=== PATIENT | male | born 1945 | race Caucasian/White ===

== ENCOUNTER 2022-12-04 09:09 | Outpatient (CLI) | payer MEDICARE, SELFPAY ==
--- NOTE | 2022-12-04 09:19 | ECG_ITS ---
Measurements Intervals [place] Rate: 59 P: 80 OR: 115 QRS: 46 QRSD: 98 T: 58 QT: 388 QTc: 387 Interpretive Statements SINUS BRADYCARDIA WITH SHORT OR INTERVAL NONSPECIFIC ST ELEVATION IN ANTERIOR LEADS BASELINE ARTIFACT- I, II, III, AVR, AVL, AVF, V4 BORDERLINE ECG NO PREVIOUS ECG AVAILABLE FOR COMPARISON Electronically Signed On 12-04-2022 9:52:49 [employer] by Michael Hager D.O.
[2022-12-04 10:09] LABS: Hemoglobin A1C 5.6 % (<5.7)
== END 2022-12-04 09:10 | disposition home or self-care (01) ==
PROVIDERS: PCP Family Medicine; Visit Provider Urology
DX: N39.3 Stress incontinence (female) (male) (principal); I10 Essential (primary) hypertension; Z01.818 Encounter for other preprocedural examination
CPT/HCPCS: 36415; 83036; 93005

== ENCOUNTER 2022-12-11 01:22 | Day surgery (SDC) | payer MEDICARE, SELFPAY ==
[2022-11-29 14:32] VITALS: BMI 26.5
--- NOTE | 2022-11-29 14:57 | PC.NURSE ---
Report to the Outpatient Waiting Room, entrance under the green pavilion located off [facility], at time __10:00AM on date __12/11/22 . Planned Procedure Time: _12:00PM . Time changes happen often and if your time is changed the preop area will call you the afternoon before. - You and your visitor will be asked to self-screen and do not enter if you have any COVID symptoms. - Only one visitor is requested with a max of two and NO children visitors are allowed at this time. - The patient visitor may be requested to leave or wait in car when not with patient due to distancing restrictions. - A mask is optional within the hospital. Patients may have clear liquids (water, carbonated beverages, clear teas, apple juice) until 3 hours prior to surgery with a maximum of 20 ounces. - No food from midnight until time of surgery Take the following medications with a SIP of water the morning of surgery: ____NONE Medications to discontinue per physician NONE Date to take last dose Please no make-up, nail uzbek, hairspray, perfume, deodorant, or body powder the day of surgery. No jewelry (including any body piercings) or valuables the day of surgery, leave them at home. Please take a shower or bath the night before, or the morning of, surgery with an antibacterial soap. Wear comfortable, loose fitting clothing. Children are encouraged to wear pajamas. - Jewelry must be removed prior to entering the operating room. Rings and piercings that are not removed may be cut off. - The hospital will not accept responsibility for valuables. - Please leave all valuables, including medications, at home the day of surgery. If you are going home after surgery, a licensed equipment driver must drive you home. - NO public transportation without another adult if you receive anesthesia. - We recommend that an adult stay with you for 24 hours following discharge. - We also recommend that you do not drive, make important decision, drink alcoholic beverages, or take any drugs that were not prescribed by your health care provider for at least 24 hours after your discharge time. Follow any additional instructions given to you from your surgeon. If you or anyone in your household have experienced Covid symptoms in the past week, please notify your surgeon or the nurse liaison at the phone number below for possible testing. Telephone instructions given to ___PATIENT and asked if any additional questions and then verbalized understanding. Patient advised to call surgeon office or pre surgery nurse liaison [phone] if any additional questions.
[2022-12-11] VITALS (12 sets, daily range): BP systolic 94–154; BP diastolic 48–92; PULSE 66–98; RESP 12–20; TEMP 36.1–36.8; O2SAT 97–100
--- NOTE | 2022-12-11 10:19 | WPDHPUPDATE1 ---
History and Physical Update Update Date/Time: 12/11/22 10:19 History and Physical has been reviewed, including an updated exam of the patient. There are NO changes in the patient's condition. Risks, benefits, and alternatives have been discussed and questions answered. Patient agrees to proceed with procedure.
[2022-12-11] MEDS: LACTATED RINGERS 1,000 ML 30 ML IV CONT ×2 (10:50→14:52)
[2022-12-11] MEDS: GENTAMICIN SULFATE INJ 420 MG in DEXTROSE 5% 100 ML 100 MG IVPB (10:50)
--- NOTE | 2022-12-11 11:51 | WPDANESEPPF ---
Anes - Initial Pre Proc Eval Procedure: Operation Date: 12/11/22 12:00 Proposed Procedures p Advance Male Sling - Andres Sheikh MD Date/Time: 12/11/22 11:51 Surgeon: Andres Sheikh MD Pre Op Diagnosis: urinary stress incontience Patient Data Age: 76 Gender: M Height: 1.78 m Weight: 80.9 kg Last Vital Signs Temp 36.8 C 12/11/22 09:56 Pulse 98 12/11/22 09:56 Resp 18 12/11/22 09:56 BP 154/80 H 12/11/22 09:56 Pulse Ox 100 12/11/22 09:56 O2 Del Method Room Air 12/11/22 09:56 Allergies Allergy/AdvReac Type Severity Reaction Status Date / Time penicillin G AdvReac Nausea Verified 12/11/22 10:06 Home Medications Medication Instructions Recorded Confirmed Type lisinopril 40 mg tablet 40 mg PO QAM 11/29/22 12/11/22 History mirabegron 50 mg tablet,extended 50 mg PO DAILY 11/29/22 12/11/22 History release 24 hr (Myrbetriq) pantoprazole 40 mg tablet,delayed 40 mg PO QAM 11/29/22 12/11/22 History release rosuvastatin 40 mg tablet 40 mg PO DAILY 11/29/22 12/11/22 History Patient hx anesthesia problems: none Family hx anesthesia problems: none Results Review: All pre-operative results and documents have been reviewed as part of the pre-operative evaluation. [facility] Social History Social History Smoking status: Never smoker Alcohol intake: current Drinks per week: 2 Substance use: never Living arrangements: with family Additional living arrangements comments: Spiritual care concerns: No Anes - Eval Final PreProcedure Day of Procedure 12/11/22 11:51 Patient weight: normal Heart: regular rate and rhythm Lungs: clear to auscultation Airway: Mallampati scale class II Neurological: alert and oriented Last oral intake: >/= 8 hours ASA classification: III Emergent: no Anesthetic plan: proceed Anesthesia type and monitoring: general LMA and standard monitoring Results Review: All pre-operative results and documents have been reviewed as part of the pre-operative evaluation. Informed Consent: The patient's anesthetic plan and its attendant risks and benefits were discussed with the patient/family/POA. Questions were solicited and answers provided to the satisfaction of the patient/family/POA.
[2022-12-11] MEDS: MIDAZOLAM HCL (*CRX) 2 MG/2 ML VIAL 1 MG IV PUSH (12:24)
--- NOTE | 2022-12-11 12:27 | SUR.PREOP ---
patient updated on time delay
[2022-12-11] MEDS: GENTAMICIN SULFATE 0.1% CR 15 GM TUBE 1 APPLIC TOPICAL (13:42)
--- NOTE | 2022-12-11 14:56 | W.PM.PROC2 ---
Procedure Note - Detailed Date of Procedure 12/11/22 Pre-op Diagnosis urinary stress incontience Post-op Diagnosis Same Procedure Performed 1. Placement of AMS Advance male sling. 2. Cystoscopy. Surgeon Andres Sheikh MD Anesthesia General Description of Procedure Description of Operation: Informed consent was obtained. The patient was taken to the operating room and given preoperative IV antibiotics with vancomycin and gentamicin, the patient has received oral Levaquin for the past 48 hours at home, and has done a 3-day Hibiclens wash. The patient was induced with general anesthesia. We then shaved, and the patient received a Betadine scrub followed by ChloraPrep. The patient was in the dorsal lithotomy position. Drapes were placed and then again prepped with Chloraprep. A 16-[place] Ca catheter was inserted. We made a 3 cm incision in the perineum. We then dissected down and identified the bulbar spongiosis muscle. The muscle layer was opened. We identified the urethra and it was mobilized laterally as well as proximally. We did take down the central tendon for approximately 3 cm. This allowed mobilization of the urethra. We then irrigated copiously. Cystoscopy was performed and revealed no injury to the urethra and appropriate dissection. We secured the mesh to the spongiosum with 3-0 Vicryl suture with the proximal end at point of dissection of central tendon.We used the Advance trocar passers to place the sling through the obturator foramen. There was good positioning noted.The catheter was removed. We then performed flexible cystoscopy. We inspected the urethra in the bladder. There was no injury from sling placement. We then tightened the sling. We did note that the sling did compress nicely. A 12-F Ca catheter was inserted.We then irrigated copiously. We then closed bulbar spongiosis with a 2-0 Vicryl suture. We then tunneled the arms of the sling into the perineal incision. We performed multiple layers of closure with 3-0 Vicryl suture and the skin was closed with a 3-0 Vicryl horizontal mattress. We reapproximated the skin at the stab incisions for placement of the trocars with 4-0 Monocryl. Surgical glue was applied to all incisions.We placed a scrotal supporter. The catheter was left to gravity. The patient was then awakened and taken to the recovery room in stable condition. Estimated Blood Loss 25 Complications No immediate complications Condition Stable Disposition PACU
[2022-12-11] MEDS: fentaNYL CITRATE INJ (*CRX) 100 MCG/2 ML VIAL 25 MCG IV PUSH ×4 (15:10→15:28)
--- NOTE | 2022-12-11 15:47 | ADMGEN ---
This patient, Onur Johnson, was admitted to -. Patient/family oriented to hospital policies and general routines including ID bracelet, bed and alarms, visiting hours, pain management, procedures, bathroom and other care routines, personal items, smoking policy, room service/diet, and visiting hours. Information on how to activate the Rapid Response Team has been discussed. Patient/Family are encouraged to report perceived risks to care and to ask questions if they do not understand what they are told or what they should do.
[2022-12-11] MEDS: DEXTROSE 5%/0.45% SOD CHL 1,000 ML 125 ML IV CONT (16:14)
--- NOTE | 2022-12-11 16:14 | ADMGEN ---
This patient, Onur Johnson, was admitted to [facility] Surgery-3. Patient/family oriented to hospital policies and general routines including ID bracelet, bed and alarms, visiting hours, pain management, procedures, bathroom and other care routines, personal items, smoking policy, room service/diet, and visiting hours. Information on how to activate the Rapid Response Team has been discussed. Patient/Family are encouraged to report perceived risks to care and to ask questions if they do not understand what they are told or what they should do.
[2022-12-11] MEDS: HYDROcodone/acetaminophen (*CRX) 5-325 MG TABLET 1 TAB PO ×2 (16:39→20:59)
[2022-12-11] MEDS: DOCUSATE SODIUM 100 MG CAPSULE PO (16:40)
[2022-12-11 20:28] LABS: Estimated CRCL calculation 59 ml/min; Estimated Glomerular Filt Rate > 60
[2022-12-12] MEDS: HYDROcodone/acetaminophen (*CRX) 5-325 MG TABLET 1 TAB PO ×2 (00:39→05:51)
[2022-12-12 05:50] VITALS: BP 103/50; PULSE 64; RESP 20; TEMP 36.8; O2SAT 99
--- NOTE | 2022-12-12 08:02 | WPDANESPN ---
Anes - Prog Note Post-Op Date/Time: 12/12/22 08:02 Vital Signs: Last Vital Signs Temp 36.8 C 12/12/22 05:50 Pulse 64 12/12/22 05:50 Resp 20 12/12/22 05:50 BP 103/50 L 12/12/22 05:50 Pulse Ox 99 12/12/22 05:50 O2 Del Method Room Air 12/11/22 15:50 O2 Flow Rate 8 12/11/22 15:05 Pain Score (VAS): 0 I/O: Intake & Output 12/11/22 12/12/22 12/12/22 23:59 07:59 15:59 Intake Total 1200 1300 Output Total 150 400 Balance 1050 900 Laboratory Tests 12/11/22 19:58 12/11/22 19:58 Creatinine 1.00 Estim Creat Clear Calc 59 Estimated GFR > 60 Patient Feedback: Patient satisfied with anesthetic care.
[2022-12-12] MEDS: lisinopriL 20 MG TABLET 40 MG PO (08:17)
[2022-12-12] MEDS: levoFLOXacin 500 MG TABLET PO (08:17)
[2022-12-12] MEDS: PANTOPRAZOLE 40 MG TABLET PO (08:17)
[2022-12-12] MEDS: ROSUVASTATIN 10 MG TABLET 40 MG PO (08:17)
[2022-12-12] MEDS: DOCUSATE SODIUM 100 MG CAPSULE PO (08:17)
[2022-12-12] MEDS: ENOXAPARIN 30 MG/0.3 ML SYRINGE SUB-Q (08:17)
[2022-12-12] MEDS: MIRABEGRON 50 MG ER TABLET PO (08:17)
[2022-12-12] MEDS: CALCIUM CARBONATE (TUMS) 500 MG (200 MG ELEMENTAL) PO (12:04)
[2022-12-12] MEDS: GENTAMICIN 80MG/SOD CHL 50 ML 80 MG/50 ML BAG 100 MG IVPB (12:46)
--- NOTE | 2022-12-12 16:00 | WPDUROPN2 ---
Progress Note: A&P Assessment and Plan (1) Stress incontinence: Code(s): N39.3 - Stress incontinence (female) (male) Status: Acute Assessment and Plan: Plan to f/u on 12/25/[address] Sheikh. Ok to discharge home. Subjective Subjective Date/Time Seen: 12/12/22 16:00 Placement of AMS Advance male sling. Cystoscopy. Patient doing very well, catheter removed this morning. Urinating independently, PVR is low via bladder scan. Post Op day: 1 Review of Systems Cardiovascular: Cardiovascular: Denies chest pain Respiratory: Respiratory: Reports no additional respiratory complaints Genitourinary: Genitourinary: Denies hematuria, Denies genital pain, Denies dysuria, Denies flank pain, Denies urinary frequency and Denies urinary hesitancy Exam Const: General: cooperative Resp: Effort & Inspection: normal respiratory effort Cardio: Rate: regular rate GI: GI Palp: Yes Soft to palpation and No Tenderness to palpation present (GI) : General: Yes no CVA tenderness Extrem: Right lower extremity: no edema Left lower extremity: no edema Objective Data Vital Signs Vital Signs: Vital Signs - 24 hr 12/11/22 16:05 12/11/22 16:35 12/11/22 17:35 Temperature 97.0 F L 97.0 F L 97.5 F L Pulse Rate 72 73 87 Respiratory Rate 18 18 18 Blood Pressure 114/71 115/58 L 106/48 L Pulse Oximetry 98 100 99 Oxygen Delivery 12/11/22 19:42 12/11/22 22:00 12/12/22 05:50 Temperature 97.8 F 98.3 F Pulse Rate 70 66 64 Respiratory Rate 20 18 20 Blood Pressure 105/52 L 103/50 L Pulse Oximetry 100 98 99 Oxygen Delivery 12/12/22 08:00 Temperature Pulse Rate Respiratory Rate Blood Pressure Pulse Oximetry Oxygen Delivery Room Air Intake/Output Intake/Output: Intake & Output 12/09/22 12/10/22 12/11/22 12/12/22 23:59 23:59 23:59 23:59 Intake Total 1660.5 1450 Output Total 500 1000 Balance 1160.5 450 Labs Labs: Laboratory Results - last 24 hr 12/11/22 19:58 Creatinine 1.00 Estim Creat Clear Calc 59 Estimated GFR > 60
== END 2022-12-12 13:30 | disposition home or self-care (01) ==
LOC: ANHSURGERY 09:52 → ANHSUROVER 18:39
PROVIDERS: PCP Family Medicine; Visit Provider Urology
PROC: (CPT 53440; principal; 2022-12-11 12:00)
DX: N39.3 Stress incontinence (female) (male) (principal); N52.31 Erectile dysfunction following radical prostatectomy; R35.0 Frequency of micturition; E78.00 Pure hypercholesterolemia, unspecified; Z85.46 Personal history of malignant neoplasm of prostate
CPT/HCPCS: 53440; 36415; 82565; 83036; 93005; A9270; C1771; J1100; J1170; J1580; J1650; J2250; J2370; J2405; J2704; J3010; J3370; J7030; J7120